=== PATIENT | female | born 1960 | race Caucasian/White ===

== ENCOUNTER 2018-09-07 08:33 | Outpatient (CLI) | payer BC ==
--- NOTE | 2018-09-07 10:08 | CT ---
CT Abdomen Pelvis W Con: 09/07/2018 12:00 AM CLINICAL INFORMATION: Right lower quadrant abdominal pain for 5 weeks and diarrhea COMPARISON: None. TECHNIQUE: Multiple contiguous axial images were obtained and a CT of the abdomen and pelvis with IV contrast. Oral contrast was administered. Coronal reformats were performed. FINDINGS: Lower Chest: Calcified granuloma in the right middle lobe. Abdomen: Liver: Multiple calcified granulomas. Bile Ducts: Normal caliber. Gallbladder: No calcified gallstones. Normal caliber wall. Pancreas: within normal limits. Spleen: Multiple calcified granulomas. Adrenals: within normal limits. Kidneys: 2.2 cm right renal cyst. Pelvis: Reproductive Organs: Status post hysterectomy. Ureters: within normal limits. Bladder: within normal limits. Peritoneum: No ascites or free air, no fluid collection. Bowel: Normal caliber. Mesentery and Retroperitoneum: No enlarged mesenteric or retroperitoneal lymph nodes. Vessels: Normal. Abdominal Wall: within normal limits. Bones: Degenerative changes in the spine. IMPRESSION: 1. No evidence of acute intraabdominal or pelvic abnormality. 2. Right renal cyst
== END 2018-09-07 08:34 | disposition home or self-care (01) ==
LOC: SCSCT 08:33
PROVIDERS: ATTEND Family Medicine
DX: R10.31 Right lower quadrant pain (principal); N28.1 Cyst of kidney, acquired
CPT/HCPCS: 74177

== ENCOUNTER 2019-12-12 15:47 | Outpatient (CLI) | payer BC ==
--- NOTE | 2019-12-12 16:41 | RAD ---
LEFT KNEE 2 VIEWS: Date: 12/12/2019 HISTORY: Acute left knee pain. FINDINGS/IMPRESSION: No acute fracture or dislocation identified. POS: AH
== END 2019-12-12 15:48 | disposition home or self-care (01) ==
LOC: BICRAD 15:47
PROVIDERS: ATTEND Family Medicine
DX: M25.562 Pain in left knee (principal)